=== PATIENT | female | born 1985 | race Caucasian/White ===

== ENCOUNTER 2019-01-06 22:31 | Emergency (ER) | payer OTHER ==
[~2019-01-06] VITALS: Ht 170.2 cm; Wt 74.8 kg
[2019-01-06] MEDS ORDERED: ANTICONCEPTIVAS (22:41)
[2019-01-06] MEDS ORDERED: AZITHROMYCIN1 GM (22:45)
[2019-01-07] MEDS ORDERED: KETO10TA2 PO (02:19)
== END 2019-01-07 02:45 | disposition home or self-care (01) ==
LOC: ER 22:31
DX: R07.89 Other chest pain (principal)

== ENCOUNTER 2021-06-16 10:59 | Emergency (ER) | payer OTHER ==
[~2021-06-16] VITALS: Ht 167.6 cm; Wt 67.6 kg
[~2021-06-16 10:59] MED LIST: ANTICONCEPTIVAS; AZITHROMYCIN1 GM; KETO10TA2 PO
== END 2021-06-16 14:00 | disposition home or self-care (01) ==
LOC: ER 10:59
DX: M54.59 Other low back pain (principal)

== ENCOUNTER 2023-01-16 06:54 | Emergency (ER) | payer OTHER ==
[~2023-01-16] VITALS: Ht 167.6 cm; Wt 76.7 kg
== END 2023-01-16 11:57 | disposition home or self-care (01) ==
LOC: ER 06:54
DX: R19.7 Diarrhea, unspecified (principal); Z88.2 Allergy status to sulfonamides; Z20.822 Contact with and (suspected) exposure to COVID-19